=== PATIENT | female | born 1955 | race Caucasian/White ===

== ENCOUNTER → 2017-08-22 | Outpatient (CLI) | payer OTHER ==
--- NOTE | 2017-08-22 15:16 | RAD ---
Indication fall 5 weeks previously. Persistent pain. AP and lateral views targeted to the sacrum and coccyx were obtained. No fracture or bony abnormality is seen
== END | disposition home or self-care (01) ==
LOC: DXRADRC 14:42
PROVIDERS: ATTEND Physician Assistant Medical
DX: S39.92XA Unspecified injury of lower back, initial encounter (principal); V80.010A Animal-rider injured by fall from or being thrown from horse in noncollision accident, initial encounter; Y93.89 Activity, other specified; Y92.89 Other specified places as the place of occurrence of the external cause; Y99.8 Other external cause status
CPT/HCPCS: 72220

== ENCOUNTER → 2019-11-26 | Outpatient (CLI) | payer MEDICARE ==
--- NOTE | 2019-11-26 11:04 | RAD ---
PROCEDURE: HIP LEFT 2 VIEW STUDY DATE: 11/26/2019 CLINICAL INDICATION / HISTORY: Left posterior hip and buttock pain after a fall. Patient felt a pop.. TECHNIQUE: 2 views of the left hip were obtained. COMPARISON: None FINDINGS: The osseous structures are normally mineralized. There is normal bony alignment present with the femoral heads well-seated within the acetabuli. There is no evidence of acute fracture or dislocation identified. The overlying soft tissues are grossly unremarkable. IMPRESSION: Unremarkable examination of the left hip. Electronically signed by: Rudi Morgan MD (11/26/2019 11:01 AM) [facility]
== END | disposition home or self-care (01) ==
LOC: DXRAD 07:34
PROVIDERS: ATTEND Physician Assistant Medical
DX: M25.552 Pain in left hip (principal)
CPT/HCPCS: 73502

== ENCOUNTER → 2020-02-07 | Outpatient (CLI) | payer MEDICARE ==
--- NOTE | 2020-02-07 08:43 | RAD ---
Examination: CT ABDOMEN PELVIS WO CONTRAST History: Severe left flank pain. Kidney stone 17 years ago. Comparison/Correlation: None Findings: Axial images of the abdomen and pelvis are obtained without contrast. Sagittal and coronal reformatted images were provided. The visualized lung bases are clear. There is a 0.4 cm hepatic dome lesion on axial image 21 . Additional smaller hepatic lesion involving the right hepatic lobe posterior segment on axial image 33 measuring 0.35 cm diameter is present. These statistically represent hepatic cysts or biliary hamartomas assuming that there are no significant risk factors. No further follow-up would be required if there are no significant arthritis. Gallbladder fossa is unremarkable. Spleen, adrenal glands, and kidneys are unremarkable. No radiopaque collecting system calculi. No pericholecystic fluid. Bilateral extrarenal pelves are noted. Large quantity of stool is present within the colon. Appendix is normal. Diverticulosis is unremarkable. Supraumbilical midline ventral hernia defect measuring 1 cm transverse by 0.8 cm longitudinal has omental fat within it. Small umbilical hernia containing fat. The urinary bladder is unremarkable. Uterus is not identified. No suspicious bony process definitely seen. Enchondroma or other sclerotic lesion which is well-demarcated involves the proximal left intertrochanteric region. Impression: No radiopaque collecting system calculi or evidence of obstruction. Diverticulosis is minimal. No inflammatory findings are evident. Supraumbilical and umbilical ventral hernia is small in size PQRS Compliance Statement: One or more of the following individualized dose reduction techniques were utilized for this examination: 1. Automated exposure control 2. Adjustment of the mA and/or kV according to patient size 3. Use of iterative reconstruction technique Electronically signed by: Moe Dallas MD (02/07/2020 8:41 AM) [id number]
== END ==
LOC: CT 08:04
PROVIDERS: ATTEND Physician Assistant Medical
DX: K43.9 Ventral hernia without obstruction or gangrene (principal); K57.90 Diverticulosis of intestine, part unspecified, without perforation or abscess without bleeding
CPT/HCPCS: 74176

== ENCOUNTER → 2021-01-27 | Outpatient (CLI) | payer MEDICARE ==
--- NOTE | 2021-01-27 18:54 | RAD ---
EXAM: 3 views of the right ankle DATE: 01/27/2021 5:53 PM INDICATION: Reason: RIGHT ANKLE PAIN. / Spl. Instructions: / History: COMPARISON: No Prior FINDINGS: No acute fracture or dislocation. Old/healed fracture of the distal fibula. Ankle mortise is congruen t. Talar dome is intact. Joint spaces are preserved without significant degenerative/proliferative ch jo. No significant soft tissue swelling. IMPRESSION: No acute fracture or dislocation. Old/healed fracture of the distal fibula Electronically signed by: Brooks iLnda MD (01/27/2021 6:51 PM) [id number]
== END ==
LOC: PMG 17:36
PROVIDERS: ATTEND Physician Assistant
DX: M25.571 Pain in right ankle and joints of right foot (principal)
CPT/HCPCS: 73610